=== PATIENT | female | born 1940 | race Caucasian/White ===

== ENCOUNTER → 2018-04-26 | Outpatient (CLI) | payer MEDICARE, OTHER ==
[~2018-04-26] MED LIST: GABA100 PO; LEVSOD50 PO; LISI5 PO; MICROZIDE12.5 MG PO
[2018-04-26 19:36] LABS: Creatinine Urine 57.5 mg/dL (27.00-270.00); Protein, Urine Quantitative 9.6 mg/dL (0.0-11.9)
[2018-04-26 19:43] LABS: Microalbumin, Urine Quant. 5.75 mg/L (0.000-20.000)
== END | disposition home or self-care (01) ==
LOC: LAB 13:38 → LAB SHORT 13:38 → LAB FUT 04-19 13:40
PROVIDERS: Internal Medicine Nephrology
DX: N18.3 Chronic kidney disease, stage 3 (moderate) (principal); N25.81 Secondary hyperparathyroidism of renal origin; E78.00 Pure hypercholesterolemia, unspecified; E55.9 Vitamin D deficiency, unspecified; D51.8 Other vitamin B12 deficiency anemias; D52.8 Other folate deficiency anemias; D50.9 Iron deficiency anemia, unspecified; R76.9 Abnormal immunological finding in serum, unspecified; R94.5 Abnormal results of liver function studies; R94.6 Abnormal results of thyroid function studies
CPT/HCPCS: 81050; 82043; 82570; 84156

== ENCOUNTER 2019-04-11 12:47 | Emergency (ER) | payer MEDICARE, OTHER ==
[~2019-04-11] VITALS: Ht 165.1 cm; Wt 86.6 kg
[~2019-04-11 12:47] MED LIST changes: -LISI5 PO; -MICROZIDE12.5 MG PO; +ZESTRIL40 MG PO
[2019-04-11] MEDS ORDERED: Amlodipine Bes2.5 MG PO (12:55)
[2019-04-11] MEDS ORDERED: Lasix20 MG PO (12:56)
[2019-04-11] MEDS ORDERED: HYDCHL25 PO (14:34)
[2019-04-11] MEDS ORDERED: CALC.25 PO (14:35)
[2019-04-11] MEDS ORDERED: Ultram50 MG PO (16:58)
[2019-04-11] MEDS ORDERED: THYROID PILL PO (17:00)
[2019-04-11] MEDS ORDERED: Norco 5-325 Ta1 EACH PO (17:04)
== END 2019-04-11 17:21 | disposition home or self-care (01) ==
LOC: ER 12:47
DX: T84.020A Dislocation of internal right hip prosthesis, initial encounter (principal); Z87.891 Personal history of nicotine dependence; Z88.8 Allergy status to other drugs, medicaments and biological substances; Z79.899 Other long term (current) drug therapy; X50.1XXA Overexertion from prolonged static or awkward postures, initial encounter
CPT/HCPCS: 27265; 73501; 73502; 96374-59; 96376-59; 99152; 99284-25; J2704; J3010; J7030

== ENCOUNTER 2019-08-24 16:22 | Emergency (ER) | payer MEDICARE, OTHER ==
[~2019-08-24] VITALS: Ht 162.6 cm; Wt 83.9 kg
[~2019-08-24 16:22] MED LIST changes: +Amlodipine Bes2.5 MG PO; +CALC.25 PO; +HYDCHL25 PO; +Lasix20 MG PO; +Norco 5-325 Ta1 EACH PO; +THYROID PILL PO; +Ultram50 MG PO
[2019-08-24] MEDS ORDERED: Vitamin D2000 UNIT PO (17:26)
[2019-08-24] MEDS ORDERED: Super B Comple1 EAC2 PO (17:27)
[2019-08-24] MEDS ORDERED: MULTIVITAMINS1 EAC3 PO (17:27)
[2019-08-24] MEDS ORDERED: B-12500 MCG PO (17:28)
[2019-08-24] MEDS ORDERED: Ferrous Sulfat325 M2 PO (17:28)
[2019-08-24 17:38] LABS: BASOPHILS ABSOLUTE AUTO 0.06 K/mm3 (0.00-0.23); BASOPHILS PERCENT AUTO 1 % (0-2); EOSINOPHILS ABSOLUTE AUTO 0.28 K/mm3 (0.00-0.68); EOSINOPHILS PERCENT AUTO 2 % (0-6); Hematocrit 39.3 % (33.0-51.0); Hemoglobin 12.5 g/dL (11.5-16.0); IMMATURE GRAN ABSOLUTE AUTO 0.07 K/mm3 (0.00-0.10); IMMATURE GRAN PERCENT AUTO 1 % (0-1); LYMPHOCYTES ABSOLUTE AUTO 3.04 K/mm3 (0.84-5.20); LYMPHOCYTES PERCENT AUTO 26 % (21-46); MONOCYTES ABSOLUTE AUTO 0.77 K/mm3 (0.16-1.47); MONOCYTES PERCENT AUTO 7 % (4-13); Mean Corpuscular HGB 29.8 pg (26.0-34.0); Mean Corpuscular HGB Conc 31.8 g/dL (31.5-36.5); Mean Corpuscular Volume 94 fL (80-100); Mean Platelet Volume 9.7 fL (9.1-12.4); NEUTROPHILS ABSOLUTE AUTO 7.66 K/mm3 (1.96-9.15); NEUTROPHILS PERCENT AUTO 64 % (41-73); Platelet Count 288 K/mm3 (150-400); RDW Coefficient Variation 12.2 % (11.7-14.2); RDW Standard Deviation 42.1 fL (35.1-46.3); White Blood Cell Count 11.88 K/mm3 (4.00-11.30)
[2019-08-24 17:56] LABS: Albumin, Blood 3.6 g/dL (3.4-5.0); Albumin/Globulin Ratio 0.9 (0.8-1.8); Bilirubin, Total 0.6 mg/dL (0.1-1.0); Bun/Creatinine Ratio 21.5 (12.0-20.0); Calcium, Blood 9.1 mg/dL (8.5-10.1); Creatinine, Blood 1.07 mg/dL (0.40-1.00); Globulin, Blood 3.8 g/dL (2.2-4.0); Total Protein, Blood 7.4 g/dL (6.4-8.2)
[2019-08-24 18:17] LABS: Source, Urine Clean Catch
[2019-08-24 18:22] LABS: Bilirubin, Urine Neg (Neg); Blood, Urine Neg (Neg); Glucose Qualitative, Urine Neg (Neg); Ketones, Urine 2+ (Neg); Leukocyte Esterase, Urine 3+ (Neg); Nitrite, Urine Neg (Neg); Protein, Urine 1+ (Neg); Urobilinogen, Urine 1+ (Normal)
[2019-08-24 18:30] LABS: Appearance, Urine Clear (Clear); Color, Urine Yellow (P-Yellow)
[2019-08-24 18:31] LABS: White Blood Cells, Urine 25-50 /hpf (0-5)
[2019-08-24 18:32] LABS: Bacteria Mod /hpf; Squamous Epithelial Cells Mod /hpf (Few)
[2019-08-24] MEDS ORDERED: Pepcid20 MG PO (19:07)
[2019-08-24] MEDS ORDERED: CEPH500 PO (19:07)
== END 2019-08-24 19:18 | disposition home or self-care (01) ==
LOC: ER 16:22
PROVIDERS: Physician Assistant
DX: N39.0 Urinary tract infection, site not specified (principal); I10 Essential (primary) hypertension; E03.9 Hypothyroidism, unspecified; K21.9 Gastro-esophageal reflux disease without esophagitis; Z88.6 Allergy status to analgesic agent; Z79.899 Other long term (current) drug therapy; Z87.891 Personal history of nicotine dependence
CPT/HCPCS: 36415; 80053; 81001; 82272; 85025; 86850; 86900; 86901; 87086; 93005; 93010; 99283-25

== ENCOUNTER 2019-12-19 07:58 | Day surgery (SDC) | payer MEDICARE, OTHER ==
--- NOTE | 2019-12-11 07:42 | NUR ---
History, Chart, Medications and Allergies reviewed before start of procedure. Patient confirms NPO status and agrees with scheduled procedure.
[~2019-12-19 07:58] MED LIST changes: +B-12500 MCG PO; +CEPH500 PO; +Ferrous Sulfat325 M2 PO; +MULTIVITAMINS1 EAC3 PO; +Pepcid20 MG PO; +Super B Comple1 EAC2 PO; +Vitamin D2000 UNIT PO
== END 2019-12-19 22:50 | disposition home or self-care (01) ==
LOC: CT 07:58
DX: I25.10 Atherosclerotic heart disease of native coronary artery without angina pectoris (principal); I26.99 Other pulmonary embolism without acute cor pulmonale; R07.89 Other chest pain; I10 Essential (primary) hypertension; E03.9 Hypothyroidism, unspecified; Z79.899 Other long term (current) drug therapy; Z87.891 Personal history of nicotine dependence; Z88.6 Allergy status to analgesic agent
CPT/HCPCS: 75574; Q9967

== ENCOUNTER 2019-12-21 11:09 | Emergency (ER) | payer MEDICARE, OTHER ==
[~2019-12-21] VITALS: Ht 165.1 cm; Wt 86.2 kg
== END 2019-12-21 14:02 | disposition home or self-care (01) ==
LOC: ER 11:09
DX: T84.020A Dislocation of internal right hip prosthesis, initial encounter (principal); I10 Essential (primary) hypertension; K21.9 Gastro-esophageal reflux disease without esophagitis; E03.9 Hypothyroidism, unspecified; Z88.6 Allergy status to analgesic agent; Z79.899 Other long term (current) drug therapy; Z87.891 Personal history of nicotine dependence; Z96.643 Presence of artificial hip joint, bilateral; X58.XXXA Exposure to other specified factors, initial encounter
CPT/HCPCS: 27266; 73501; 73502; 96361-59; 96374-59; 96375-59; 99284-25; J1170; J2405; J2704; J7030

== ENCOUNTER 2020-09-02 06:59 | Day surgery (SDC) | payer MEDICARE, OTHER ==
[~2020-09-02] VITALS: Ht 162.6 cm; Wt 86.5 kg
[~2020-09-02 06:59] MED LIST changes: +CALCIUM; +GABA300 PO; +LIOT5 PO; +VITAMIN D; +XARELTO20 MG PO
[2020-09-02] MEDS ORDERED: Amoxicillin500 MG PO (07:20)
--- NOTE | 2020-09-02 08:17 | NUR ---
09/02/20 0817 Lizzy Ulloa 0800- History, Chart, Medications and Allergies reviewed before start of procedure. Patient confirms NPO status and agrees with scheduled surgery. PATIENT DETERMINED TO BE ASA APPROPRIATE FOR PROPOFOL SEDATION PRIOR TO START OF PROCEDURE BY DR. HOOKS. 3-LEAD EKG REVIEWED WITH PHYSICIAN PRIOR TO START OF PROCEDURE. MONITOR INTACT WITH CONTINUOUS PULSE OXIMETRY AND INTERMITTENT BP.
== END 2020-09-02 22:51 | disposition home or self-care (01) ==
LOC: ORSCMMR 06:59 → ORD 06:59 → ORSCMMR 07:00 → ORD 08:00
PROVIDERS: Internal Medicine Gastroenterology
PROC: 0DJ08ZZ Inspection of Upper Intestinal Tract, Via Natural or Artificial Opening Endoscopic (ICD-10-PCS; principal; 2020-09-02 08:00)
DX: K25.0 Acute gastric ulcer with hemorrhage (principal); D50.9 Iron deficiency anemia, unspecified; Z98.84 Bariatric surgery status; I10 Essential (primary) hypertension; N18.9 Chronic kidney disease, unspecified; Z79.899 Other long term (current) drug therapy
CPT/HCPCS: J2704; J7120

== ENCOUNTER 2021-07-10 15:05 | Emergency (ER) | payer MEDICARE, OTHER ==
[~2021-07-10] VITALS: Ht 162.6 cm; Wt 81.7 kg
[~2021-07-10 15:05] MED LIST changes: +Amoxicillin500 MG PO
[2021-07-10] MEDS ORDERED: OMEP20ER PO (15:18)
[2021-07-10] MEDS ORDERED: ZOLOFT50 MG PO (15:19)
[2021-07-10] MEDS ORDERED: ASPI81CH PO (15:20)
[2021-07-10 16:06] LABS: BASOPHILS ABSOLUTE AUTO 0.06 K/mm3 (0.00-0.23); BASOPHILS PERCENT AUTO 1 % (0-2); EOSINOPHILS ABSOLUTE AUTO 0.27 K/mm3 (0.00-0.68); EOSINOPHILS PERCENT AUTO 3 % (0-6); Hematocrit 31.3 % (33.0-51.0); Hemoglobin 9.9 g/dL (11.5-16.0); IMMATURE GRAN ABSOLUTE AUTO 0.08 K/mm3 (0.00-0.10); IMMATURE GRAN PERCENT AUTO 1 % (0-1); LYMPHOCYTES ABSOLUTE AUTO 1.48 K/mm3 (0.84-5.20); LYMPHOCYTES PERCENT AUTO 14 % (21-46); MONOCYTES ABSOLUTE AUTO 0.61 K/mm3 (0.16-1.47); MONOCYTES PERCENT AUTO 6 % (4-13); Mean Corpuscular HGB 28.1 pg (26.0-34.0); Mean Corpuscular HGB Conc 31.6 g/dL (31.5-36.5); Mean Corpuscular Volume 89 fL (80-100); Mean Platelet Volume 9.1 fL (9.1-12.4); NEUTROPHILS ABSOLUTE AUTO 8.24 K/mm3 (1.96-9.15); NEUTROPHILS PERCENT AUTO 77 % (41-73); Platelet Count 407 K/mm3 (150-400); RDW Coefficient Variation 13.1 % (11.7-14.2); RDW Standard Deviation 42.4 fL (35.1-46.3); Red Blood Cell Count 3.52 M/mm3 (3.80-5.20); White Blood Cell Count 10.74 K/mm3 (4.00-11.30)
[2021-07-10 16:29] LABS: Albumin, Blood 2.6 g/dL (3.4-5.0); Albumin/Globulin Ratio 0.7 (0.8-1.8); Bilirubin, Total 0.4 mg/dL (0.1-1.0); Bun/Creatinine Ratio 16.8 (12.0-20.0); Calcium, Blood 8.6 mg/dL (8.5-10.1); Creatinine, Blood 1.07 mg/dL (0.40-1.00); Globulin, Blood 3.8 g/dL (2.2-4.0); Potassium, Blood 4.5 mmol/L (3.5-5.5); Total Protein, Blood 6.4 g/dL (6.4-8.2)
== END 2021-07-10 17:26 | disposition home or self-care (01) ==
LOC: ER 15:05
PROVIDERS: Student in an Organized Health Care Education/Training Program
DX: R55 Syncope and collapse (principal); I10 Essential (primary) hypertension; E03.9 Hypothyroidism, unspecified; N18.9 Chronic kidney disease, unspecified; K21.9 Gastro-esophageal reflux disease without esophagitis; Z87.891 Personal history of nicotine dependence
CPT/HCPCS: 80053; 84484; 85025; 93005; 93010; 99284-25; J7120

== ENCOUNTER 2021-11-04 06:36 | Day surgery (SDC) | payer MEDICARE, OTHER ==
[~2021-11-04] VITALS: Ht 165.1 cm; Wt 78.6 kg
[~2021-11-04 06:36] MED LIST changes: +ASPI81CH PO; +OMEP20ER PO; +ZOLOFT50 MG PO
== END 2021-11-04 08:45 | disposition home or self-care (01) ==
LOC: ORSCSDS 06:36
PROVIDERS: Orthopaedic Surgery
PROC: 01N50ZZ Release Median Nerve, Open Approach (ICD-10-PCS; principal; 2021-11-04 08:00)
DX: G56.02 Carpal tunnel syndrome, left upper limb (principal); G47.33 Obstructive sleep apnea (adult) (pediatric); I10 Essential (primary) hypertension; E03.9 Hypothyroidism, unspecified; G25.81 Restless legs syndrome; K21.9 Gastro-esophageal reflux disease without esophagitis; F32.A Depression, unspecified; Z86.711 Personal history of pulmonary embolism; Z79.82 Long term (current) use of aspirin; Z79.899 Other long term (current) drug therapy; Z87.891 Personal history of nicotine dependence
CPT/HCPCS: J2250; J3010; J7120

== ENCOUNTER 2022-06-11 11:06 | Emergency (ER) | payer MEDICARE, OTHER ==
[~2022-06-11] VITALS: Ht 165.1 cm; Wt 79.4 kg
== END 2022-06-11 14:00 | disposition home or self-care (01) ==
LOC: ER 11:06
DX: T84.020A Dislocation of internal right hip prosthesis, initial encounter (principal); I10 Essential (primary) hypertension; K21.9 Gastro-esophageal reflux disease without esophagitis; E03.9 Hypothyroidism, unspecified; Z88.6 Allergy status to analgesic agent; Z79.899 Other long term (current) drug therapy; Z79.82 Long term (current) use of aspirin; Z87.891 Personal history of nicotine dependence; X50.1XXA Overexertion from prolonged static or awkward postures, initial encounter
CPT/HCPCS: 27265; 73501; 73502; 96374-59; 99152; 99284-25; A9270; J1885; J2704; J3010; J7030

== ENCOUNTER 2022-07-15 13:20 | Emergency (ER) | payer MEDICARE, OTHER ==
[~2022-07-15] VITALS: Ht 165.1 cm; Wt 77.1 kg
== END 2022-07-15 16:14 | disposition home or self-care (01) ==
LOC: ER 13:20
DX: T84.020A Dislocation of internal right hip prosthesis, initial encounter (principal); I10 Essential (primary) hypertension; Z87.891 Personal history of nicotine dependence; Y83.8 Other surgical procedures as the cause of abnormal reaction of the patient, or of later complication, without mention of misadventure at the time of the procedure
CPT/HCPCS: 36415; 73501; 73502; J2704; J7030

== ENCOUNTER 2023-04-01 18:55 | Emergency (ER) | payer MEDICARE, OTHER ==
[~2023-04-01] VITALS: Ht 162.6 cm; Wt 77.1 kg
[2023-04-01 19:34] LABS: BASOPHILS ABSOLUTE AUTO 0.05 K/mm3 (0.00-0.23); BASOPHILS PERCENT AUTO 1 % (0-2); EOSINOPHILS ABSOLUTE AUTO 0.38 K/mm3 (0.00-0.68); EOSINOPHILS PERCENT AUTO 5 % (0-6); Hematocrit 31.6 % (33.0-51.0); Hemoglobin 10.6 g/dL (11.5-16.0); IMMATURE GRAN ABSOLUTE AUTO 0.04 K/mm3 (0.00-0.10); IMMATURE GRAN PERCENT AUTO 1 % (0-1); LYMPHOCYTES ABSOLUTE AUTO 1.98 K/mm3 (0.84-5.20); LYMPHOCYTES PERCENT AUTO 25 % (21-46); MONOCYTES ABSOLUTE AUTO 0.57 K/mm3 (0.16-1.47); MONOCYTES PERCENT AUTO 7 % (4-13); Mean Corpuscular HGB Conc 33.5 g/dL (31.5-36.5); Mean Corpuscular Volume 83 fL (80-100); Mean Platelet Volume 9.5 fL (9.1-12.4); NEUTROPHILS ABSOLUTE AUTO 4.99 K/mm3 (1.96-9.15); NEUTROPHILS PERCENT AUTO 62 % (41-73); Platelet Count 336 K/mm3 (150-400); RDW Coefficient Variation 13.6 % (11.7-14.2); RDW Standard Deviation 41.8 fL (35.1-46.3); Red Blood Cell Count 3.79 M/mm3 (3.80-5.20); White Blood Cell Count 8.01 K/mm3 (4.00-11.30)
[2023-04-01 19:57] LABS: Albumin, Blood 2.8 g/dL (3.4-5.0); Bilirubin, Total 0.3 mg/dL (0.1-1.0); Bun/Creatinine Ratio 24.5 (12.0-20.0); Calcium, Blood 8.4 mg/dL (8.5-10.1); Creatinine, Blood 0.98 mg/dL (0.40-1.00); Globulin, Blood 2.9 g/dL (2.2-4.0); Potassium, Blood 4.4 mmol/L (3.5-5.5); Total Protein, Blood 5.7 g/dL (6.4-8.2)
[2023-04-01 21:15] VITALS: BP 141/81
== END 2023-04-01 21:59 | disposition home or self-care (01) ==
LOC: ER 18:55
PROVIDERS: Physician Assistant
DX: R55 Syncope and collapse (principal); S06.9X1A Unspecified intracranial injury with loss of consciousness of 30 minutes or less, initial encounter; S01.81XA Laceration without foreign body of other part of head, initial encounter; R63.4 Abnormal weight loss; I10 Essential (primary) hypertension; E03.9 Hypothyroidism, unspecified; K21.9 Gastro-esophageal reflux disease without esophagitis; Z88.6 Allergy status to analgesic agent; Z86.711 Personal history of pulmonary embolism; Z68.29 Body mass index [BMI] 29.0-29.9, adult; Z79.82 Long term (current) use of aspirin; Z79.899 Other long term (current) drug therapy; Z87.891 Personal history of nicotine dependence; W18.30XA Fall on same level, unspecified, initial encounter
CPT/HCPCS: 70450; 80053; 85025; 93005; 93010; 99284-25

== ENCOUNTER → 2024-03-14 | Outpatient (CLI) | payer MEDICARE, OTHER ==
[2024-03-14 15:59] LABS: BASOPHILS ABSOLUTE AUTO 0.06 K/mm3 (0.00-0.23); BASOPHILS PERCENT AUTO 1 % (0-2); EOSINOPHILS ABSOLUTE AUTO 0.37 K/mm3 (0.00-0.68); EOSINOPHILS PERCENT AUTO 4 % (0-6); Hematocrit 36.9 % (33.0-51.0); Hemoglobin 11.5 g/dL (11.5-16.0); IMMATURE GRAN ABSOLUTE AUTO 0.04 K/mm3 (0.00-0.10); IMMATURE GRAN PERCENT AUTO 1 % (0-1); LYMPHOCYTES ABSOLUTE AUTO 1.57 K/mm3 (0.84-5.20); LYMPHOCYTES PERCENT AUTO 18 % (21-46); MONOCYTES ABSOLUTE AUTO 0.49 K/mm3 (0.16-1.47); MONOCYTES PERCENT AUTO 6 % (4-13); Mean Corpuscular HGB 28.7 pg (26.0-34.0); Mean Corpuscular HGB Conc 31.2 g/dL (31.5-36.5); Mean Corpuscular Volume 92 fL (80-100); Mean Platelet Volume 10.5 fL (9.1-12.4); NEUTROPHILS ABSOLUTE AUTO 6.15 K/mm3 (1.96-9.15); NEUTROPHILS PERCENT AUTO 71 % (41-73); Platelet Count 266 K/mm3 (150-400); RDW Coefficient Variation 14.3 % (11.7-14.2); RDW Standard Deviation 48.4 fL (35.1-46.3); Red Blood Cell Count 4.01 M/mm3 (3.80-5.20); White Blood Cell Count 8.68 K/mm3 (4.00-11.30)
[2024-03-14 16:18] LABS: Albumin, Blood 3.2 g/dL (3.4-5.0); Bilirubin, Total 0.4 mg/dL (0.1-1.0); Bun/Creatinine Ratio 24.5 (12.0-20.0); Calcium, Blood 8.6 mg/dL (8.5-10.1); Creatinine, Blood 0.9 mg/dL (0.40-1.00); Globulin, Blood 3.3 g/dL (2.2-4.0); Percent Saturation 14.8 % (15.0-50.0); Potassium, Blood 4.4 mmol/L (3.5-5.5); Thyroid Stimulating Hormone 2.61 uIU/mL (0.360-4.800); Total Protein, Blood 6.5 g/dL (6.4-8.2)
== END ==
LOC: LAB SHORT 14:51 → LAB 14:51
PROVIDERS: Nurse Practitioner Family
DX: D50.8 Other iron deficiency anemias (principal); D64.9 Anemia, unspecified; R53.83 Other fatigue
CPT/HCPCS: 80053; 82728; 83540; 83550; 84443; 85025

== ENCOUNTER 2024-12-07 11:26 | Inpatient (IN) | payer MEDICARE, OTHER ==
[2024-12-07] VITALS (37 sets, daily range): BP systolic 87–150; BP diastolic 66–114
[~2024-12-07] VITALS: Ht 167.6 cm; Wt 69.5 kg
[~2024-12-07 11:26] MED LIST changes: -CALCIUM; +CALCIUM 500-VI1 EAC4 PO; -VITAMIN D; +VITAMIN D310 MC1 PO
[2024-12-07 12:08] LABS: Base Excess Venous -5.7 mmol/L; Bicarbonate Venous 19.6 mmol/L (24.0-30.0); PCO2 Venous 38.4 mmHg (38-42); pH Blood Venous 7.33 (7.34-7.37)
[2024-12-07 12:12] LABS: BASOPHILS ABSOLUTE AUTO 0.05 K/mm3 (0.00-0.23); BASOPHILS PERCENT AUTO 0 % (0-2); EOSINOPHILS PERCENT AUTO 0 % (0-6); Hematocrit 42.3 % (33.0-51.0); Hemoglobin 13.6 g/dL (11.5-16.0); IMMATURE GRAN ABSOLUTE AUTO 0.18 K/mm3 (0.00-0.10); IMMATURE GRAN PERCENT AUTO 1 % (0-1); LYMPHOCYTES ABSOLUTE AUTO 1.16 K/mm3 (0.84-5.20); LYMPHOCYTES PERCENT AUTO 7 % (21-46); MONOCYTES ABSOLUTE AUTO 0.57 K/mm3 (0.16-1.47); MONOCYTES PERCENT AUTO 4 % (4-13); Mean Corpuscular HGB 29.2 pg (26.0-34.0); Mean Corpuscular HGB Conc 32.2 g/dL (31.5-36.5); Mean Corpuscular Volume 91 fL (80-100); Mean Platelet Volume 10.3 fL (9.1-12.4); NEUTROPHILS ABSOLUTE AUTO 13.63 K/mm3 (1.96-9.15); NEUTROPHILS PERCENT AUTO 87 % (41-73); Platelet Count 246 K/mm3 (150-400); RDW Standard Deviation 46.4 fL (35.1-46.3); Red Blood Cell Count 4.65 M/mm3 (3.80-5.20); White Blood Cell Count 15.59 K/mm3 (4.00-11.30)
[2024-12-07 12:32] LABS: Albumin, Blood 3.1 g/dL (3.4-5.0); Albumin/Globulin Ratio 0.9 (0.8-1.8); Bilirubin, Total 0.7 mg/dL (0.1-1.0); Bun/Creatinine Ratio 31.1 (12.0-20.0); Calcium, Blood 8.3 mg/dL (8.5-10.1); Creatinine, Blood 1.51 mg/dL (0.40-1.00); Globulin, Blood 3.6 g/dL (2.2-4.0); Potassium, Blood 4.6 mmol/L (3.5-5.5); Total Protein, Blood 6.7 g/dL (6.4-8.2)
[2024-12-07] MEDS ORDERED: NS 1,000 ML IV SCH (14:35)
[2024-12-07 15:27] LABS: Anti-Xa UFH, PHA Monitoring <0.10 IU/mL; International Normalized Ratio 1.06; Prothrombin Time Results 11.3 Sec (9.7-11.5)
[2024-12-07] MEDS ORDERED: Heparin Sodium,Porcine/0.5 NS 500 ML IV SCH (15:35)
[2024-12-07] MEDS ORDERED: Heparin Sodium 5000 Units/ML 1ML MDV IV ONE (15:35)
[2024-12-07] MEDS ORDERED: NS 1,000 ML IV ONE ×2 (16:47→16:53)
[2024-12-07] MEDS ORDERED: Midazolam HCl 1MG / ML 2ML Vial ONE (16:47)
[2024-12-07] MEDS ORDERED: FentaNYL Citrate 50 MCG/ML 2 ML Injection ONE (16:48)
[2024-12-07] MEDS ORDERED: Heparin Sodium 1000 Units/ML 10ML MDV ONE ×2 (16:48→16:53)
[2024-12-07] MEDS ORDERED: NS 500 ML IV ONE (18:03)
[2024-12-07] MEDS ORDERED: HydrALAZINE HCl 20 MG / ML 1ML Vial IV PRN (18:05)
[2024-12-07] MEDS ORDERED: Lactated Ringer's 1,000 ML IV SCH (18:05)
[2024-12-07] MEDS ORDERED: Gabapentin 100 MG Cap PO SCH (21:00)
[2024-12-08] VITALS (27 sets, daily range): BP systolic 84–123; BP diastolic 54–78
[2024-12-08 02:24] LABS: BASOPHILS ABSOLUTE AUTO 0.05 K/mm3 (0.00-0.23); BASOPHILS PERCENT AUTO 0 % (0-2); EOSINOPHILS ABSOLUTE AUTO 0.04 K/mm3 (0.00-0.68); EOSINOPHILS PERCENT AUTO 0 % (0-6); Hematocrit 30.2 % (33.0-51.0); Hemoglobin 10.1 g/dL (11.5-16.0); IMMATURE GRAN ABSOLUTE AUTO 0.14 K/mm3 (0.00-0.10); IMMATURE GRAN PERCENT AUTO 1 % (0-1); LYMPHOCYTES ABSOLUTE AUTO 2.34 K/mm3 (0.84-5.20); LYMPHOCYTES PERCENT AUTO 17 % (21-46); MONOCYTES ABSOLUTE AUTO 0.88 K/mm3 (0.16-1.47); MONOCYTES PERCENT AUTO 6 % (4-13); Mean Corpuscular HGB Conc 33.4 g/dL (31.5-36.5); Mean Corpuscular Volume 90 fL (80-100); Mean Platelet Volume 10.1 fL (9.1-12.4); NEUTROPHILS ABSOLUTE AUTO 10.71 K/mm3 (1.96-9.15); NEUTROPHILS PERCENT AUTO 76 % (41-73); Platelet Count 191 K/mm3 (150-400); RDW Coefficient Variation 14.1 % (11.7-14.2); RDW Standard Deviation 44.8 fL (35.1-46.3); Red Blood Cell Count 3.37 M/mm3 (3.80-5.20); White Blood Cell Count 14.16 K/mm3 (4.00-11.30)
[2024-12-08 02:49] LABS: Albumin, Blood 2.3 g/dL (3.4-5.0); Albumin/Globulin Ratio 0.9 (0.8-1.8); Bilirubin, Total 0.6 mg/dL (0.1-1.0); Bun/Creatinine Ratio 34.7 (12.0-20.0); Calcium, Blood 7.3 mg/dL (8.5-10.1); Creatinine, Blood 1.18 mg/dL (0.40-1.00); Globulin, Blood 2.6 g/dL (2.2-4.0); Total Protein, Blood 4.9 g/dL (6.4-8.2)
[2024-12-08] MEDS ORDERED: Dose Adjust by Pharmacy XX STA ×2 (02:58→10:11)
--- NOTE | 2024-12-08 05:52 | NUR ---
SHIFT SUMMARY: PT ARRIVED SHORTLY AFTER THE START OF SHIFT FROM THE PEDIATRIC PSYCHIATRIST. IT WAS REPORTED THAT THE THROMBECTOMY WAS SUCCESSFUL AND THEY WERE ABLE TO REMOVE A LOT OF CLOT. PT STATED THAT SHE ALMOST IMMEDIATELY FELT BETTER AND COULD BREATHE EASIER. PT REQUESTED TO NOT WEAR THE BIPAP ANYMORE BECAUSE SHE FELT HER BREATHING HAD IMPROVED. SHE HAS BEEN ON 2LPM NC FOR MOST OF SHIFT. HER INSERTION SITE IS SOFT, NO HEMATOMA. NO COMPLAINT OF CHEST PAIN. SHE SLEPT THROUGH MOST OF THE NIGHT WITHOUT COMPLAINT. HEPARIN AND LR CONTINUE TO INFUSE.
[2024-12-08] MEDS ORDERED: Liothyronine Sodium 5 MCG Tab PO SCH (06:00)
[2024-12-08] MEDS ORDERED: Pantoprazole Sodium 20 MG Tab PO SCH (06:00)
[2024-12-08] MEDS ORDERED: Sertraline HCl 50 MG Tab PO SCH (09:00)
[2024-12-08] MEDS ORDERED: AmLODIPine Besylate 5 MG Tab PO SCH (09:00)
[2024-12-08 09:09] LABS: Hematocrit 32.2 % (33.0-51.0); Platelet Count 200 K/mm3 (150-400)
[2024-12-08] MEDS ORDERED: Rivaroxaban 10 MG Tab PO SCH (13:15)
--- NOTE | 2024-12-08 13:54 | NUR ---
Pt. is awake in bed and welcomes my visit. Pt. pleasant. Facilitate a life reveiw, and listen with empathy and interest. Pt. verbalizes that she was a faithful member of her [employer] until they closed. Pt. displayed evidence of a hopeful demeanor. Prayed with Pt, Pt. verbalized gratitude for the Spiritual Care visit.
--- NOTE | 2024-12-08 17:17 | NUR ---
1650 REPORT WAS CALLED TO GLORIA WANG. PT WAS ASSISTED TO WHEELCHAIR, O2 VIA NC REMAINS AT 2L, SOME INCREASED WORK OF BREATHING WITH MOBILITY. WHEELCHAIR RIDE TO ROOM 2 IN PCU, PT'S BELONGINGS TAKEN WITH HER. CHART TAKEN WELL. TRAY COLLECTED BY AMARILYS YING.
--- NOTE | 2024-12-08 17:27 | NUR ---
TRANSFER TO PCU / SHIFT SUMMARY PT ARRIVED TO PCU AT APPROXIMATELY 1705. PT TRANSFERED FROM WHEELCHAIR TO HOSPITAL BED WITH SBA. A&Ox4, CALLS AND COMMUNICATES NEEDS APPROPRIATELY. VSS, PT ARRIVED ON 2L VIA NC WITH SpO2> 92%. REPORTS MILD SOB WITH ACTIVITY. DENIES CP/PRESSURE. NO C/O PAIN. NO OTHER EVENTS, WILL REPORT TO ONCOMING RN.
--- NOTE | 2024-12-08 20:53 | NUR ---
reviewed chart notes and pt was advised by hospitilist to utilize incentive spirometry and flutter valve d/t atelectasis. Gave pt these resources in room, educated on use. Pt understood. Call light within [facility].
[2024-12-09 03:23] VITALS: BP 97/68
[2024-12-09 04:15] LABS: BASOPHILS ABSOLUTE AUTO 0.03 K/mm3 (0.00-0.23); BASOPHILS PERCENT AUTO 0 % (0-2); EOSINOPHILS ABSOLUTE AUTO 0.27 K/mm3 (0.00-0.68); EOSINOPHILS PERCENT AUTO 2 % (0-6); Hematocrit 27.7 % (33.0-51.0); Hemoglobin 8.9 g/dL (11.5-16.0); IMMATURE GRAN ABSOLUTE AUTO 0.12 K/mm3 (0.00-0.10); IMMATURE GRAN PERCENT AUTO 1 % (0-1); LYMPHOCYTES PERCENT AUTO 18 % (21-46); MONOCYTES ABSOLUTE AUTO 0.72 K/mm3 (0.16-1.47); MONOCYTES PERCENT AUTO 6 % (4-13); Mean Corpuscular HGB Conc 32.1 g/dL (31.5-36.5); Mean Corpuscular Volume 93 fL (80-100); Mean Platelet Volume 10.4 fL (9.1-12.4); NEUTROPHILS ABSOLUTE AUTO 8.11 K/mm3 (1.96-9.15); NEUTROPHILS PERCENT AUTO 72 % (41-73); Platelet Count 194 K/mm3 (150-400); RDW Coefficient Variation 14.1 % (11.7-14.2); RDW Standard Deviation 46.5 fL (35.1-46.3); Red Blood Cell Count 2.97 M/mm3 (3.80-5.20); White Blood Cell Count 11.25 K/mm3 (4.00-11.30)
--- NOTE | 2024-12-09 04:16 | NUR ---
Shift Summary: AOX4, pt cooperative with care. Tele NSR HRs >80s, blood pressure at baseline with hypotensive readings, managed per EMAR. RA at baseline, but currently utilizing O2 via nasal cannula 2 L on admission d/t B/L PEs. Denies CP or chest pressure. 1p standby assist, does get SOB & Dyspneic on exertion.But pt reports it has been improving throughout her stay. Incentive & Flutter valve was given d/t R LL atelactasis instructions per hospitilist note, pt educated on the use and she has been using throughout shift. R groin access dressing intact, no erythema, no bleeding, no bruising noted and pt denies pain at site, see shift assessment note. Patient resting comfortably, breathing even and unlabored, bed in low locked position and call light within reach.
--- NOTE | 2024-12-09 04:18 | NUR ---
I HAVE REVIEWED THE [employer] [employer] INFORMATION CLERK DOCUMENTATION AND AM IN AGREEMENT.
[2024-12-09 04:40] LABS: Bun/Creatinine Ratio 31.5 (12.0-20.0); Calcium, Blood 7.5 mg/dL (8.5-10.1); Creatinine, Blood 1.08 mg/dL (0.40-1.00); Potassium, Blood 3.8 mmol/L (3.5-5.5)
[2024-12-09 07:54] VITALS: BP 107/68
[2024-12-09] MEDS ORDERED: BUDESONIDE-FO10.2 G3 INH (08:03)
[2024-12-09] MEDS ORDERED: EUTHYROX88 MC1 PO (08:04)
--- NOTE | 2024-12-09 08:08 | NUR ---
AM NOTE PT ALERT, ORIENTED X4; CALM AND COOPERATIVE WITH CARE. PT UP IN CHAIR THIS AM WITH SBA. PT DENIES PAIN, CHEST PAIN/PRESSURE, SOB, NAUSEA, DIZZINESS AND NUMB/TINGLING. SPO2 >90% ON RA, BREATHING EVEN AND UNLABORED, CLEAR UPPER LOBES, DIM BASES. TELE SINUS 70-80'S, BP STABLE. ABD SOFT, NONTENDER, +BT. NO EDEMA NOTED. PT STATES SHE NO LONGER TAKES AMLODIPINE AND SERTRALINE, UPDATED HOME MEDICATIONS THIS AM. OTHER VSS. CALL LIGHT WITHIN REACH.
[2024-12-09] MEDS ORDERED: Furosemide 20 MG Tab PO SCH (09:00)
[2024-12-09] MEDS ORDERED: Calcitriol 0.25 MCG Cap PO SCH (09:00)
[2024-12-09] MEDS ORDERED: Polyethylene Glycol 3350 17 gm PO SCH (10:00)
[2024-12-09 11:18] VITALS: BP 103/47
[2024-12-09] MEDS ORDERED: XARELTO15 MG PO (12:30)
[2024-12-09] MEDS ORDERED: MIRALAX17 GM PO (12:30)
[2024-12-09] MEDS ORDERED: LIOT5 PO (12:30)
[2024-12-09] MEDS ORDERED: XARELTO20 MG PO (12:31)
[2024-12-09 15:24] VITALS: BP 101/69
--- NOTE | 2024-12-09 16:55 | NUR ---
Discharge summary No acute changes during shift. Pt had home o2 eval completed, 2l at rest, 4l with activity. Medications faxed to [facility], son stating they called and do not have the dose needed, faxed to [facility] per patient request. VSS. Educated pt and son on discharge instructions, follow up appointment, prescriptions and PEs. Pt left room via wheelchair at 1531.
[2024-12-09] MEDS ORDERED: Lisinopril 20 MG Tab PO SCH (21:00)
== END 2024-12-09 15:31 | disposition home health service (06) | DRG 163 ==
LOC: ER 11:26 → ERHOLD 16:21 → PCU 16:21 → ICUE 16:21 → PCU 12-08 17:13
PROVIDERS: Pharmacist; Student in an Organized Health Care Education/Training Program; ADMIT Internal Medicine
PROC: X2CY3T7 Extirpation of Matter from Great Vessel using Computer-aided Mechanical Aspiration, Percutaneous Approach, New Technology Group 7 (ICD-10-PCS; principal; 2024-12-07)
PROC: 5A09357 Assistance with Respiratory Ventilation, Less than 24 Consecutive Hours, Continuous Positive Airway Pressure (ICD-10-PCS; 2024-12-07)
PROC: 5A0935A Assistance with Respiratory Ventilation, Less than 24 Consecutive Hours, High Flow/Velocity Cannula (ICD-10-PCS; 2024-12-07)
DX: I26.92 Saddle embolus of pulmonary artery without acute cor pulmonale (principal); J96.01 Acute respiratory failure with hypoxia; N17.9 Acute kidney failure, unspecified; J98.11 Atelectasis; T17.890A Other foreign object in other parts of respiratory tract causing asphyxiation, initial encounter; N18.9 Chronic kidney disease, unspecified; I12.9 Hypertensive chronic kidney disease with stage 1 through stage 4 chronic kidney disease, or unspecified chronic kidney disease; K21.9 Gastro-esophageal reflux disease without esophagitis; I27.29 Other secondary pulmonary hypertension; E03.9 Hypothyroidism, unspecified; J44.9 Chronic obstructive pulmonary disease, unspecified; I08.1 Rheumatic disorders of both mitral and tricuspid valves; G62.9 Polyneuropathy, unspecified; Z96.643 Presence of artificial hip joint, bilateral; Z96.653 Presence of artificial knee joint, bilateral; Z98.84 Bariatric surgery status; Z90.49 Acquired absence of other specified parts of digestive tract; Z98.890 Other specified postprocedural states; Z88.8 Allergy status to other drugs, medicaments and biological substances; Z79.82 Long term (current) use of aspirin; Z79.899 Other long term (current) drug therapy; Z87.891 Personal history of nicotine dependence
CPT/HCPCS: 36415; 37184; 37185; 71045; 71260; 75743; 76937; 80048; 80053; 82375; 82803; 84484; 85014; 85018; 85025; 85049; 85520; 85610; 85730; 93005; 93010; 93306; 94660; 94760; 94761; 94762; 97110; 97116; 97162; 99152; 99153; 99285-25; A9270; C1725; C1757; C1760; C1769; C1894; J1644; J2250; J2470; J3010; J7030; J7040; J7120; Q9967

== ENCOUNTER → 2025-01-02 | Outpatient (CLI) | payer MEDICARE, OTHER ==
[~2025-01-02] MED LIST changes: +BUDESONIDE-FO10.2 G3 INH; +EUTHYROX88 MC1 PO; +MIRALAX17 GM PO; +XARELTO15 MG PO
[2025-01-02 16:51] LABS: BASOPHILS ABSOLUTE AUTO 0.03 K/mm3 (0.00-0.23); BASOPHILS PERCENT AUTO 0 % (0-2); EOSINOPHILS ABSOLUTE AUTO 0.21 K/mm3 (0.00-0.68); EOSINOPHILS PERCENT AUTO 3 % (0-6); Hematocrit 32.7 % (33.0-51.0); IMMATURE GRAN ABSOLUTE AUTO 0.02 K/mm3 (0.00-0.10); IMMATURE GRAN PERCENT AUTO 0 % (0-1); LYMPHOCYTES ABSOLUTE AUTO 1.57 K/mm3 (0.84-5.20); LYMPHOCYTES PERCENT AUTO 23 % (21-46); MONOCYTES ABSOLUTE AUTO 0.39 K/mm3 (0.16-1.47); MONOCYTES PERCENT AUTO 6 % (4-13); Mean Corpuscular HGB 27.9 pg (26.0-34.0); Mean Corpuscular HGB Conc 30.6 g/dL (31.5-36.5); Mean Corpuscular Volume 91 fL (80-100); Mean Platelet Volume 9.8 fL (9.1-12.4); NEUTROPHILS ABSOLUTE AUTO 4.71 K/mm3 (1.96-9.15); NEUTROPHILS PERCENT AUTO 68 % (41-73); Platelet Count 355 K/mm3 (150-400); RDW Standard Deviation 47.5 fL (35.1-46.3); Red Blood Cell Count 3.58 M/mm3 (3.80-5.20); White Blood Cell Count 6.93 K/mm3 (4.00-11.30)
[2025-01-02 19:41] LABS: Percent Saturation 10.2 % (15.0-50.0)
== END | disposition home or self-care (01) ==
LOC: LAB SHORT 13:25 → LAB 13:25
PROVIDERS: Nurse Practitioner Family
DX: K64.9 Unspecified hemorrhoids (principal); D50.9 Iron deficiency anemia, unspecified
CPT/HCPCS: 82728; 83540; 83550; 85025

== ENCOUNTER → 2025-05-11 | Outpatient (CLI) | payer MEDICARE, OTHER ==
[2025-05-11 18:57] LABS: BASOPHILS ABSOLUTE AUTO 0.04 K/mm3 (0.00-0.23); BASOPHILS PERCENT AUTO 1 % (0-2); EOSINOPHILS ABSOLUTE AUTO 0.13 K/mm3 (0.00-0.68); EOSINOPHILS PERCENT AUTO 2 % (0-6); Hematocrit 37.3 % (33.0-51.0); Hemoglobin 12.2 g/dL (11.5-16.0); IMMATURE GRAN ABSOLUTE AUTO 0.03 K/mm3 (0.00-0.10); IMMATURE GRAN PERCENT AUTO 0 % (0-1); LYMPHOCYTES ABSOLUTE AUTO 1.52 K/mm3 (0.84-5.20); LYMPHOCYTES PERCENT AUTO 21 % (21-46); MONOCYTES ABSOLUTE AUTO 0.47 K/mm3 (0.16-1.47); MONOCYTES PERCENT AUTO 6 % (4-13); Mean Corpuscular HGB Conc 32.7 g/dL (31.5-36.5); Mean Corpuscular Volume 89 fL (80-100); NEUTROPHILS ABSOLUTE AUTO 5.23 K/mm3 (1.96-9.15); NEUTROPHILS PERCENT AUTO 71 % (41-73); NRBC ABSOLUTE 0.00 K/mm3 (0.00-0.02); NRBC Auto 0.0 /100 WBC (0.0-0.2); Platelet Count 287 K/mm3 (150-400); RDW Coefficient Variation 14.5 % (11.7-14.2); RDW Standard Deviation 46.4 fL (35.1-46.3)
[2025-05-11 19:50] LABS: Ferritin, Serum 29.0 ng/mL (8-252); Total Iron Binding Capacity 272.0 ug/dL (250-450)
== END ==
LOC: LAB 18:14 → LAB SHORT 18:14
PROVIDERS: Nurse Practitioner Family
DX: D50.0 Iron deficiency anemia secondary to blood loss (chronic) (principal)
CPT/HCPCS: 82728; 83540; 83550; 85025

== ENCOUNTER 2025-06-21 10:01 | Day surgery (SDC) | payer MEDICARE, OTHER ==
[~2025-06-21] VITALS: Ht 162.6 cm; Wt 69.4 kg
[~2025-06-21 10:01] MED LIST changes: +Balanced Salt Epinephrine Irrigation Solution 500 mL IR SCH; +Moxifloxacin HCL 0.5 MG/0.1 ML 0.4MLSYR LEFTEYE SCH; +Ondansetron 4 MG SoluTab MM PRN; +PHENYLEPHRINE\\TROPICAMIDE\\TETRACAINE OPHTHALMIC DILATING SOLN LEFTEYE PRN; +Povidone-Iodine 450 DROP/30 ML Solution LEFTEYE SCH; +Povidone-Iodine 450 DROP/30 ML Solution ONE; +Tetracaine HCl/Pf 0.5% Opth Soln 4 ml ONE; +Triamcinolone Inj Susp 40 MG / ML 1ML Vial INJ SCH; +Triamcinolone Inj Susp 40 MG / ML 1ML Vial ONE; +diazePAM 2 MG,diazePAM 5 MG PO SCH
[2025-06-21] MEDS ORDERED: AMLO5 PO (10:38)
[2025-06-21] MEDS ORDERED: Tetracaine HCl 0.5% Opth Soln 15 ml LEFTEYE ONE (11:12)
--- NOTE | 2025-06-21 11:20 | NUR ---
06/21/25 1120 Amy Thomas 124/60 BP 66 HR 96% 02 18 RR
--- NOTE | 2025-06-21 11:37 | NUR ---
06/21/[address] at bedside
[2025-06-21 11:39] VITALS: BP 129/60
== END 2025-06-21 11:50 | disposition home or self-care (01) ==
LOC: ORSCSDS 10:01
PROVIDERS: Ophthalmology
PROC: 08RK3JZ Replacement of Left Lens with Synthetic Substitute, Percutaneous Approach (ICD-10-PCS; principal; 2025-06-21 11:30)
DX: H25.812 Combined forms of age-related cataract, left eye (principal); I10 Essential (primary) hypertension; Z79.01 Long term (current) use of anticoagulants; Z79.899 Other long term (current) drug therapy
CPT/HCPCS: A9270; J2003; J3301; V2632

== ENCOUNTER 2025-06-28 09:52 | Day surgery (SDC) | payer MEDICARE, OTHER ==
[~2025-06-28] VITALS: Ht 162.6 cm; Wt 70.7 kg
[~2025-06-28 09:52] MED LIST changes: +AMLO5 PO; -Moxifloxacin HCL 0.5 MG/0.1 ML 0.4MLSYR LEFTEYE SCH; +Moxifloxacin HCL 0.5 MG/0.1 ML 0.4MLSYR RIGHTEYE SCH; -PHENYLEPHRINE\\TROPICAMIDE\\TETRACAINE OPHTHALMIC DILATING SOLN LEFTEYE PRN; +PHENYLEPHRINE\\TROPICAMIDE\\TETRACAINE OPHTHALMIC DILATING SOLN RIGHTEYE PRN; -Povidone-Iodine 450 DROP/30 ML Solution LEFTEYE SCH; +Povidone-Iodine 450 DROP/30 ML Solution RIGHTEYE SCH
--- NOTE | 2025-06-28 10:31 | NUR ---
06/28/25 1031 Merary Lange PT STATES ANXIETY LEVEL IS 0/10 IN PREOP PT HAS CONTINUOUS PULSE OX ON PT HAS CALL LIGHT IN HAND
[2025-06-28] MEDS ORDERED: Tetracaine HCl 0.5% Opth Soln 15 ml RIGHTEYE ONE (11:00)
--- NOTE | 2025-06-28 11:05 | NUR ---
06/28/25 1105 Amy Thomas 71 HR 94% O2 18 RR 146/70
--- NOTE | 2025-06-28 11:40 | NUR ---
06/28/25 1140 Michele Stout PT INSTRUCTED TO MONITOR B/P AT HOME AND FOLLOW UP WITH PCP IF NEEDED.
[2025-06-28 11:41] VITALS: BP 134/67
== END 2025-06-28 11:30 | disposition home or self-care (01) ==
LOC: ORSCSDS 09:52
PROVIDERS: Ophthalmology
PROC: 08RJ3JZ Replacement of Right Lens with Synthetic Substitute, Percutaneous Approach (ICD-10-PCS; principal; 2025-06-28 11:30)
DX: H25.811 Combined forms of age-related cataract, right eye (principal); Z96.1 Presence of intraocular lens; H52.4 Presbyopia; I10 Essential (primary) hypertension; Z79.01 Long term (current) use of anticoagulants; Z79.899 Other long term (current) drug therapy; Z87.891 Personal history of nicotine dependence
CPT/HCPCS: A9270; J3301; V2632

== ENCOUNTER → 2025-08-02 | Outpatient (CLI) | payer MEDICARE, OTHER ==
[~2025-08-02] MED LIST changes: -Balanced Salt Epinephrine Irrigation Solution 500 mL IR SCH; -Moxifloxacin HCL 0.5 MG/0.1 ML 0.4MLSYR RIGHTEYE SCH; -Ondansetron 4 MG SoluTab MM PRN; -PHENYLEPHRINE\\TROPICAMIDE\\TETRACAINE OPHTHALMIC DILATING SOLN RIGHTEYE PRN; -Povidone-Iodine 450 DROP/30 ML Solution ONE; -Povidone-Iodine 450 DROP/30 ML Solution RIGHTEYE SCH; -Tetracaine HCl/Pf 0.5% Opth Soln 4 ml ONE; -Triamcinolone Inj Susp 40 MG / ML 1ML Vial INJ SCH; -Triamcinolone Inj Susp 40 MG / ML 1ML Vial ONE; -diazePAM 2 MG,diazePAM 5 MG PO SCH
== END ==
LOC: LAB SHORT 15:18 → LAB 15:18
DX: M25.473 Effusion, unspecified ankle (principal)
CPT/HCPCS: 83880